=== PATIENT | male | born 1990 | race Two or more races ===

== ENCOUNTER 2021-06-16 13:34 | Emergency (ER) | payer MEDICAID, OTHER ==
[~2021-06-16] VITALS: Ht 177.8 cm; Wt 140.6 kg
[2021-06-16 18:18] VITALS: BP 151/96
== END 2021-06-16 19:46 | disposition home or self-care (01) ==
LOC: ER 13:34
DX: S93.691A Other sprain of right foot, initial encounter (principal); M19.071 Primary osteoarthritis, right ankle and foot; X58.XXXA Exposure to other specified factors, initial encounter; Y93.89 Activity, other specified; Y92.89 Other specified places as the place of occurrence of the external cause; Y99.8 Other external cause status
CPT/HCPCS: 73600; 73620